=== PATIENT | male | born 1945 | race Caucasian/White ===

== ENCOUNTER 2017-03-17 02:58 | Emergency (ER) | payer MEDICARE, MEDICAID ==
[2017-03-17 03:51] LABS: Urine Bacteria Absent (Absent); Urine Bilirubin Negative (Negative); Urine Glucose 1+(50 mg/dL) (Negative); Urine Nitrite Negative (Negative)
[2017-03-17 03:53] LABS: Hematocrit 33 % (42-52); Hemoglobin 11.2 g/dl (14.0-18.0); Mean Corpuscular HGB Conc 34 g/dl (31-36); Mean Corpuscular Hemoglobin 31 pg (27-31); Mean Corpuscular Volume 91 fL (80-94); Mean Platelet Volume 9 um3 (7.4-10.4); Red Blood Count 3.65 10^6/ul (4.0-5.4); Red Cell Distribution Width 15 % (10.5-15); White Blood Count 6.6 10^3/ul (3.5-10.8)
[2017-03-17 04:07] LABS: BUN/Creatinine Ratio 16.6 (8-20); Calcium 9.9 mg/dL (8.6-10.3); EGFR African American 47.8 (>60); EGFR Non-African American 37.1 (>60); Globulin 2.6 g/dL (2-4); Potassium 3.5 mmol/L (3.5-5.0); Total Bilirubin 0.4 mg/dL (0.2-1.0); Total Protein 6.6 g/dL (6.4-8.9)
[2017-03-17 04:09] LABS: Troponin I 0.01 ng/mL (<0.04)
[2017-03-17 04:17] LABS: TSH (Thyroid Stimulating Horm) 1.58 mcIU/mL (0.34-5.60)
--- NOTE | 2017-03-17 04:40 | ED ---
Nemo Rust Rebecca, scribed for Ga Mcguire MD on 03/17/17 at 0334 . Neurological HPI - HPI Summary HPI Summary: Pt is a 71 y/o M BIBA from [facility] to r/o stroke. At approximately 2100 last night he started experiencing bilateral hand and bilateral foot numbness. Sx aggravated and alleviated by nothing. Denies any pain at this time. Prior similar episode 11 years ago during which he had a CVA. PMHx CVA, HTN and nelson's palsy. - History of Current Complaint Chief Complaint: EDNeurologicalDeficit Stated Complaint: POSS STROKE Time Seen by Provider: 03/17/17 03:02 Hx Obtained From: Patient, EMS Onset/Duration: Started hours ago, Still Present Pain Intensity: 0 Pain Scale Used: 0-10 Numeric Character: Numbness/Tingling Aggravating: Nothing Alleviating: Nothing Associated Signs and Symptoms: Positive: Negative - Allergy/Home Medications Allergies/Adverse Reactions: Allergies Allergy/AdvReac Type Severity Reaction Status Date / Time No Known Allergies Allergy Verified 03/17/17 03:38 PMH/Surg Hx/FS Hx/Imm Hx Endocrine/Hematology History: Reports: Hx Diabetes Cardiovascular History: Reports: Hx Congestive Heart Failure, Hx Coronary Artery Disease, Hx Hypercholesterolemia, Hx Hypertension Neurological History: Reports: Hx CVA, Other Neuro Impairments/Disorders - Nelson' s palsy - Surgical History Surgery Procedure, Year, and Place: aneurysm repair in [place] per pt Infectious Disease History: Denies: Traveled Outside the [place] in Last 30 Days - Family History Known Family History: Positive: Hypertension - Social History Occupation: Retired Smoking Status (MU): Former Smoker Review of Systems Negative: Fever Positive: Numbness - Bilateral foot and hand numbness All Other Systems Reviewed And Are Negative: Yes Physical Exam Triage Information Reviewed: Yes Vital Signs On Initial Exam: Initial Vitals Temp Pulse Resp BP Pulse Ox 97.8 F 56 16 216/76 99 03/17/17 03:19 03/17/17 03:19 03/17/17 03:19 03/17/17 03:19 03/17/17 03:19 Vital Signs Reviewed: Yes Appearance: Positive: Well-Appearing, No Pain Distress Skin: Positive: Warm Head/Face: Positive: Other - lt facial droop ENT: Positive: Normal ENT inspection Neck: Positive: Supple Respiratory/Lung Sounds: Positive: Clear to Auscultation, Breath Sounds Present Cardiovascular: Positive: RRR Abdomen Description: Positive: Nontender, Soft Bowel Sounds: Positive: Present Musculoskeletal: Positive: Strength/ROM Intact Neurological: Positive: Sensory/Motor Intact, Alert, Oriented to Person Place, Time, Normal Gait, Facial Droop - left, old Psychiatric: Positive: Affect/Mood Appropriate Diagnostics - Vital Signs Vital Signs Temp Pulse Resp BP Pulse Ox 03/17/17 03:19 97.8 F 56 16 216/76 99 - Laboratory Result Diagrams: 03/17/17 03:40 03/17/17 03:40 Lab Statement: Any lab studies that have been ordered have been reviewed, and results considered in the medical decision making process. - CT Brain CT CT Interpretation: No Acute Changes - No acute intracranial patholoy. Probable bilateral mastoiditis. ED physician reviewed this radiology report and agrees. CT Interpretation Completed By: Radiologist - EKG 0349 Cardiac Rate: Bradycardia - 56 bpm EKG Rhythm: Sinus Bradycardia EKG Interpretation: Normal NIH Scale - NIH Scale Level of Consciousness: Alert/Keenly Responsive Ask Patient the Month and His/Her Age: Both Correct Ask Pt to Open/Close Eyes and Choral Teacher/Release Non-Paretic Hand: Both Correctly Best Gaze (Only Horizontal Eye Movement): Normal Visual Field Testing: No Visual Loss Facial Paresis-Pt to Smile & Close Eyes or Grimace Symmetry: Normal/Symmetrical Motor Function - Right Arm: No Drift-Holds 10 Seconds Motor Function - Left Arm: No Drift-Holds 10 Seconds Motor Function - Right Leg: No Drift-Holds 10 Seconds Motor Function - Left Leg: No Drift-Holds 10 Seconds Limb Ataxia-Must be out of Proportion to Weakness Present: Absent Sensory (Use Pinprick to Test Arms/Legs/Trunk/Face): Normal Best Language (Describe Picture, Name Items): No Aphasia Dysarthria (Read Several Words): Normal Extinction and Inattention: No Abnormality Total Score: 0 Re-Evaluation - Re-Evaluation First Eval Change: Improved - results d/w pt Course/Dx - Course Assessment/Plan: Pt is a 71 y/o M BIBA from [facility] to r/o stroke. At approximately 2100 last night he started experiencing bilateral hand and bilateral foot numbness. Sx aggravated and alleviated by nothing. Denies any pain at this time. Prior similar episode 11 years ago during which he had a CVA. PMHx CVA, HTN and nelson's palsy. Brain CT reveals no acute findings. EKG reveals sinus bradycardia. Pt will be D/C to home with Dx of paresthesia and a follow up with his PCP. He understands and agrees. Elevated BP noted and advised to f/u with PCP. - Diagnoses Provider Diagnoses: Paresthesia Discharge - Discharge Plan Condition: Stable Disposition: HOME Patient Education Materials: Paresthesia (ED) [place]: [facility] [place] [facility] [place]] Additional Instructions: Return to the ED for any returning or worsening symptoms. The documentation as recorded by the Nemo crenshaw Rebecca accurately reflects the service I personally performed and the decisions made by me, Ga Mcguire MD.
[2017-03-17 06:32] VITALS: BP 186/75
--- NOTE | 2017-03-17 08:01 | RAD ---
HISTORY: Paresthesia, history of aneurysm COMPARISONS: None TECHNIQUE: Multiple contiguous axial CT scans were obtained of the head without intravenous contrast. FINDINGS: HEMORRHAGE/INFARCT: There is no hemorrhage or acute infarct. MASSES/SHIFT: There is no mass or shift. EXTRA-AXIAL SPACES: There are no extra-axial fluid collections. SULCI AND VENTRICLES: The sulci and ventricles are normal in size and position for the patient's stated age. CEREBRUM: There are no focal parenchymal abnormalities. BRAINSTEM: There are no focal parenchymal abnormalities. CEREBELLUM: There are no focal parenchymal abnormalities. VESSELS: A metallic stent is noted in the basilar artery. There is calcification of the cavernous segments of the internal carotid arteries bilaterally and of the distal vertebral arteries bilaterally. PARANASAL SINUSES: The paranasal sinuses are clear. There are bilateral mastoid effusions. ORBITS: The orbits are unremarkable. BONES AND SOFT TISSUE: No bone or soft tissue abnormalities are noted. OTHER: None IMPRESSION: 1. NO ACUTE INTRACRANIAL PATHOLOGY. 2. BILATERAL MASTOID EFFUSIONS..
== END 2017-03-17 06:37 | disposition home or self-care (01) ==
LOC: ED 02:58
DX: R20.9 Unspecified disturbances of skin sensation (principal); E11.9 Type 2 diabetes mellitus without complications; Z86.79 Personal history of other diseases of the circulatory system; Z86.73 Personal history of transient ischemic attack (TIA), and cerebral infarction without residual deficits; Z87.891 Personal history of nicotine dependence
CPT/HCPCS: 36415; 70450; 80053; 81003; 81015; 83605; 83735; 84443; 84484; 85025; 85610; 93005; 99283